=== PATIENT | female | born 1950 | race Caucasian/White ===

== ENCOUNTER 2021-05-08 10:07 | Emergency (ER) | payer BC ==
--- NOTE | 2021-05-08 10:21 | EDM.PDOC ---
ED HPI GENERAL MEDICAL PROBLEM - General Stated Complaint: COUGH/CONGESTION/CHILLS Time Seen by Provider: 05/08/21 10:30 Source of Information: Reports: Patient History Limitations: Reports: No Limitations - History of Present Illness INITIAL COMMENTS - FREE TEXT/NARRATIVE: Patient presented to the ED because of fever, chills, cough and cold for almost 1 week. There is no N/V/D. Denies having any dyspnea, changes in bowel movements or urinary s/s. - Related Data Allergies Allergy/AdvReac Type Severity Reaction Status Date / Time No Known Allergies Allergy Verified 05/08/21 20:50 Home Meds: Home Meds Azithromycin [Zithromax] 500 mg PO DAILY #5 tab 05/08/21 [Rx] ED ROS GENERAL - Review of Systems Review Of Systems: See Below Constitutional: Reports: Fever, Chills HEENT: Reports: No Symptoms Respiratory: Reports: No Symptoms Cardiovascular: Reports: No Symptoms Endocrine: Reports: No Symptoms GI/Abdominal: Reports: No Symptoms : Reports: No Symptoms Musculoskeletal: Reports: No Symptoms Skin: Reports: No Symptoms Neurological: Reports: No Symptoms ED EXAM, GENERAL - Physical Exam Exam: See Below Exam Limited By: No Limitations General Appearance: Alert, No Apparent Distress Eye Exam: Bilateral Eye: PERRL Ears: Normal External Exam, Normal Canal Nose: Nasal Deformity, Nasal Swelling, Nasal Drainage Throat/Mouth: Normal Inspection, Normal Lips Head: Atraumatic, Normocephalic Neck: Normal Inspection, Supple, Non-Tender, Full Range of Motion Respiratory/Chest: No Respiratory Distress, Lungs Clear, Rhonchi Cardiovascular: Normal Peripheral Pulses, Regular Rate, Rhythm, No Edema GI/Abdominal: Normal Bowel Sounds, Soft Back Exam: Normal Inspection, Full Range of Motion Extremities: Normal Inspection, Normal Range of Motion, Non-Tender, No Pedal Edema, Normal Capillary Refill Neurological: Alert, Oriented, CN II-XII Intact, Normal Cognition, Normal Reflexes, No Motor/Sensory Deficits Psychiatric: Normal Affect Course - Vital Signs Text/Narrative:: Zithromax 500 mg PO x1 Last Recorded V/S: Last Vital Signs Temp 38.8 C H 05/08/21 11:30 Pulse 64 05/08/21 11:30 Resp 18 05/08/21 11:30 BP 117/62 05/08/21 11:30 Pulse Ox 98 05/08/21 11:30 - Orders/Labs/Meds Meds: Medications Discontinued Medications Generic Name Dose Route Start Last Admin Trade Name Rafael PRN Reason Stop Dose Admin Azithromycin 500 mg 05/08/21 10:22 05/08/21 10:50 Azithromycin 500 Mg Tab PO 05/08/21 10:23 500 mg NOW STA Administration Departure - Departure Time of Disposition: 10:30 Disposition: Home, Self-Care 01 Clinical Impression: Acute bronchitis - Discharge Information Prescriptions: Azithromycin [Zithromax] 500 mg PO DAILY #5 tab Instructions: Acute Bronchitis, Adult, [id number] Referrals: Angelica Robert, [employer] [Primary Care Provider] - Forms: ED Department Discharge Additional Instructions: Please read discharge instructions om bronchitis Increase oral fluids Zithromax 500 mg daily for 5 days Follow up as needed
[2021-05-08] MEDS ORDERED: Azithromycin 500 MG Tab PO STA (10:22)
== END 2021-05-08 10:45 | disposition home or self-care (01) ==
LOC: FB.ED 10:07
DX: J20.9 Acute bronchitis, unspecified (principal)
CPT/HCPCS: 99283; A9270

== ENCOUNTER 2021-08-27 11:00 | Emergency (ER) | payer BC ==
[2021-08-27] MEDS: Alum Hydroxide/Mag Hydroxide 30 ML, Lidocaine 2% 15 ML PO ONE ×2 (11:36)
== END 2021-08-27 12:43 | disposition home or self-care (01) ==
LOC: FB.ED 11:00
DX: R10.13 Epigastric pain (principal)
CPT/HCPCS: 99283; A9270-GY